=== PATIENT | male | born 1950 | race Caucasian/White ===

== ENCOUNTER → 2016-09-04 | Outpatient (CLI) | payer OTHER ==
[~2016-09-04] VITALS: Ht 170.2 cm; Wt 79.4 kg
[~2016-09-04] MED LIST: AUGMENTIN875 MG PO; CALCIUM600 M1 PO; CAPOTEN50 MG PO; CELEBREX200 MG PO; CENTRUM SILV1 TABLE1 PO; Ecotrin PO; Feosol PO; IRON325 M1 PO; LO-DOSE ASPIRIN81 M1 PO; LOPID600 MG PO; Lopid PO; MAGNESIUM250 MG PO; MULTIVITAMIN1 EAC2 PO; OXYCODONE HCL10 MG PO; POTASSIUM-9999 MG PO; PRILOSEC20 MG PO; SENOKOT S,PE1 TABLET PO; VITAMIN C1000 MG PO; VITAMIN E400 UNIT PO; Vicodin,Lortab 5/500 PO
== END | disposition home or self-care (01) ==
LOC: AMB 09:36
PROC: 0DH68UZ Insertion of Feeding Device into Stomach, Via Natural or Artificial Opening Endoscopic (ICD-10-PCS; principal; 2016-09-04)
DX: C01 Malignant neoplasm of base of tongue (principal); I10 Essential (primary) hypertension; Z79.82 Long term (current) use of aspirin
CPT/HCPCS: J2250; J3010

== ENCOUNTER 2016-09-18 07:08 | Day surgery (SDC) | payer OTHER ==
[~2016-09-18] VITALS: Ht 170.2 cm; Wt 77.1 kg
== END 2016-09-18 09:50 | disposition home or self-care (01) ==
LOC: CATH 07:08
DX: I87.8 Other specified disorders of veins (principal); C02.9 Malignant neoplasm of tongue, unspecified; C14.0 Malignant neoplasm of pharynx, unspecified; J44.9 Chronic obstructive pulmonary disease, unspecified; E78.5 Hyperlipidemia, unspecified; M19.90 Unspecified osteoarthritis, unspecified site; Z87.891 Personal history of nicotine dependence; Z79.82 Long term (current) use of aspirin; Z88.8 Allergy status to other drugs, medicaments and biological substances
CPT/HCPCS: J0690; J1644; J2250; J3010; S0020

== ENCOUNTER → 2017-01-01 | Outpatient (CLI) | payer OTHER ==
[~2017-01-01] MED LIST changes: +FENTANYL1 EAC1 TD; +FENTANYL1 EAC5 TD
== END | disposition home or self-care (01) ==
DX: C02.9 Malignant neoplasm of tongue, unspecified (principal); R13.11 Dysphagia, oral phase; R13.13 Dysphagia, pharyngeal phase
CPT/HCPCS: 92611 GN; G8996 GN; G8997 GN; G8998 GN; G9174 GN; G9175 GN; G9176 GN

== ENCOUNTER 2017-02-18 09:33 | Day surgery (SDC) | payer OTHER ==
[~2017-02-18] VITALS: Ht 170.2 cm; Wt 70.3 kg
[2017-02-18] MEDS ORDERED: DURAGESIC100 MCG TD (10:28)
[2017-02-18] MEDS ORDERED: OXYCODONE HCL10 MG PO (10:29)
[2017-02-18 10:35] VITALS: BP 128/72
[2017-02-18] MEDS ORDERED: PERCOCET 5/31 TABLET PO (14:27)
[2017-02-18] MEDS ORDERED: MOTRIN600 MG PO (14:27)
[2017-02-18 14:55] VITALS: BP 126/76
[2017-02-18 15:25] VITALS: BP 127/81
== END 2017-02-18 15:25 | disposition home or self-care (01) ==
LOC: SDC 09:33
PROC: 0WUF0JZ Supplement Abdominal Wall with Synthetic Substitute, Open Approach (ICD-10-PCS; principal; 2017-02-18)
DX: K40.90 Unilateral inguinal hernia, without obstruction or gangrene, not specified as recurrent (principal); D17.6 Benign lipomatous neoplasm of spermatic cord; K59.00 Constipation, unspecified; I10 Essential (primary) hypertension; K21.9 Gastro-esophageal reflux disease without esophagitis; C76.0 Malignant neoplasm of head, face and neck; Z88.5 Allergy status to narcotic agent; E78.00 Pure hypercholesterolemia, unspecified
CPT/HCPCS: C1781; J0690; J2250; J2405; J3010; S0020

== ENCOUNTER 2017-03-20 08:51 | Day surgery (SDC) | payer OTHER ==
[~2017-03-20] VITALS: Ht 170.2 cm; Wt 70.3 kg
[~2017-03-20 08:51] MED LIST changes: +DURAGESIC100 MCG TD; +MOTRIN600 MG PO; +PERCOCET 5/31 TABLET PO
[2017-03-20 09:14] VITALS: BP 107/66
[2017-03-20] MEDS ORDERED: PERCOCET 5/31 TABLET PO (13:50)
[2017-03-20 14:18] VITALS: BP 134/67
[2017-03-20 15:00] VITALS: BP 134/74
== END 2017-03-20 15:00 | disposition home or self-care (01) ==
LOC: SDC 08:51
PROC: 0YU60JZ Supplement Left Inguinal Region with Synthetic Substitute, Open Approach (ICD-10-PCS; principal; 2017-03-20)
PROC: 05PY03Z Removal of Infusion Device from Upper Vein, Open Approach (ICD-10-PCS; 2017-03-20)
DX: K40.90 Unilateral inguinal hernia, without obstruction or gangrene, not specified as recurrent (principal); D17.6 Benign lipomatous neoplasm of spermatic cord; Z45.2 Encounter for adjustment and management of vascular access device; I10 Essential (primary) hypertension; K21.0 Gastro-esophageal reflux disease with esophagitis; J44.9 Chronic obstructive pulmonary disease, unspecified; Z85.89 Personal history of malignant neoplasm of other organs and systems; Z87.891 Personal history of nicotine dependence; Z92.21 Personal history of antineoplastic chemotherapy
CPT/HCPCS: C1781; J0690; J2250; J2405; J3010; S0020